=== PATIENT | male | born 1970 | race African-American/Black ===

== ENCOUNTER 2016-08-12 17:36 | Emergency (ER) | payer BC ==
[~2016-08-12] VITALS: Ht 167.6 cm; Wt 90.0 kg
[2016-08-12 17:38] VITALS: BP 128/80; PULSE 72; RESP 20; TEMP 98.3; O2SAT 100
--- NOTE | 2016-08-12 18:16 | PD ---
HPI Chief Complaint: Allergic/Adverse Reaction Time Seen by Provider: 18:01 Travel History International Travel<30 days: No Contact w/Intl Traveler<30days: No Traveled to known affect area: No History of Present Illness HPI 46-year-old Afro-[place] male presents the emergency Department with raised erythematous rash since yesterday. Patient recently had a dental procedure with tooth removal of the right #29 tooth. He is placed on penicillin and Tylenol 3. Patient recently flew here from [place] last evening for a family reunion. He took a Dilaudid for pain that he got from one of his family members. He was worried that the rash that he developed may been from that versus the penicillin. Patient states she's taken penicillin many times in the past. Denies any swelling of the tongue, difficulty breathing, or difficulty swallowing. He has no fever, chills, or other symptoms. He has no previous known drug allergies. PFSH Past Medical History Hx Anticoagulant Therapy: No Cardiovascular Problems: No Chemotherapy: No Cerebrovascular Accident: No Diabetes: No Respiratory: No ?: Not Past Surgical History Hysterectomy: No Social History Alcohol Use: Yes Tobacco Use: No Substance Use: No Allergies-Medications (Allergen,Severity, Reaction): Coded Allergies: No Known Allergies (Unverified , 08/12/16) Review of Systems Except as stated in HPI: all other systems reviewed are Neg General / Constitutional: No: Fever Eyes: No: Visual changes HENT: Positive: Dental Difficulties (see history of present illness), No: Headaches Cardiovascular: No: Chest Pain or Discomfort Respiratory: No: Shortness of Breath Gastrointestinal: No: Abdominal Pain Genitourinary: No: Dysuria Musculoskeletal: No: Pain Skin: Positive Rash, Positive Itching Neurologic: No: Weakness Psychiatric: No: Depression Endocrine: No: Polydipsia Hematologic/Lymphatic: No: Easy Bruising Physical Exam Narrative GENERAL: Patient appears in mild distress. SKIN: Warm and dry. Normal color. Normal turgor. Patient has a diffuse raised erythematous rough rash. HEAD: Atraumatic. Normocephalic. She has mild swelling to the right lower jaw. EYES: Pupils equal and round. No scleral icterus. No injection or drainage. ENT: No nasal bleeding or discharge. Mucous membranes pink and moist. Patient has missing #29 tooth, with localized tenderness and mild swelling. No obvious abscess. TMs are clear bilaterally. Pharynx is clear. Airway is patent. NECK: Trachea midline. Supple and nontender without significant lymphadenopathy. No Roberto Carlos's angina. CARDIOVASCULAR: Regular rate and rhythm. RESPIRATORY: No accessory muscle use. Clear to auscultation. Breath sounds equal bilaterally. MUSCULOSKELETAL: Extremities without clubbing, cyanosis, or edema. No obvious deformities. NEUROLOGICAL: Awake and alert. No obvious cranial nerve deficits. Motor grossly within normal limits. Five out of 5 muscle strength in the arms and legs. Normal speech. PSYCHIATRIC: Appropriate mood and affect; insight and judgment normal. Data Data Last Documented VS Vital Signs Date Time Temp Pulse Resp B/P Pulse Ox O2 Delivery O2 Flow Rate FiO2 08/12/16 17:38 98.3 72 20 128/80 100 Room Air [facility] Medical Decision Making Medical Screen Exam Complete: Yes Emergency Medical Condition: Yes Differential Diagnosis Dental pain. Dry socket. Allergic reaction to penicillin. Narrative Course Patient is medically stable at time of exam. Patient will discontinue penicillin. Patient is to start clindamycin 300 mg 3 times a day for 7 days. Patient is given ibuprofen 800 mg 3 times daily with food. #30. Patient is given acetaminophen 500 mg 2 tabs every 6 hours when necessary for pain. #60. Patient is given Magic mouthwash, 5-10 Mls every 2 hours when necessary dental pain. 120 mL's with 1 refill. Patient can take Benadryl as needed for rash. Patient to follow with his dentist and/or primary care physician or return to emergency Department with worsening symptoms as needed. Diagnosis Primary Impression: Allergic reaction to penicillin Qualified Code: T36.0X5A - Allergic reaction to penicillin, initial encounter Additional Impression: Pain, dental Referrals: Dentist Patient Instructions: Dental Abscess (ED), General Allergic Reaction (ED), General Instructions Additional Instructions: Patient is medically stable at time of exam. Patient will discontinue penicillin. Patient is to start clindamycin 300 mg 3 times a day for 7 days. Patient is given ibuprofen 800 mg 3 times daily with food. #30. Patient is given acetaminophen 500 mg 2 tabs every 6 hours when necessary for pain. #60. Patient is given Magic mouthwash, 5-10 Mls every 2 hours when necessary dental pain. 120 mL's with 1 refill. Patient can take Benadryl as needed for rash. Patient to follow with his dentist and/or primary care physician or return to emergency Department with worsening symptoms as needed. Med/Other Pt SpecificInfo: Prescription(s) given Disposition: 01 DISCHARGE HOME Condition: Stable Ketan Zuniga Aug 12, 2016 18:16
[2016-08-12] MEDS ORDERED: MAGICADU2 SWISH-SWAL (18:17)
[2016-08-12] MEDS ORDERED: CLIN150 PO (18:17)
[2016-08-12] MEDS ORDERED: NON-500T13 PO (18:17)
[2016-08-12] MEDS ORDERED: IBUP800T23 PO (18:17)
[2016-08-12] MEDS ORDERED: PERC5TAB12 PO (18:24)
[2016-08-12] MEDS ORDERED: SKEL800T21 PO (18:24)
== END 2016-08-12 18:40 | disposition home or self-care (01) ==
LOC: NEPK 17:36
DX: R21 Rash and other nonspecific skin eruption (principal); T36.0X5A Adverse effect of penicillins, initial encounter; K08.89 Other specified disorders of teeth and supporting structures
CPT/HCPCS: 99284